=== PATIENT | male | born 1970 | race Two or more races ===

== ENCOUNTER 2025-09-25 11:59 | Emergency (ER) | payer MEDICAID ==
[~2025-09-25] VITALS: Ht 182.9 cm; Wt 107.0 kg
--- NOTE | 2025-09-25 13:31 | ED.PDOC ---
History of Present Illness(SKN HPI Comments This is a 55 year old male presenting to the ED with chief complaint of rash. Patient reports that he has been experiencing rash to his right lower back since , starting to crust over recently. Patient relays that the pain is a burning sensation. Patient denies any numbness, weakness, itchiness, fever, or chills. Chief Complaint: Rash Time Seen by MD: 13:29 History of Present Illness: Nurses Notes, Medications, Allergies Information Source: Patient, Relative (Child) Mode of Arrival: Ambulatory Severity: Mild Timing: Days Duration: Since onset Prehospital treatment: None Location: Back Mechanism: Spontaneous Onset Developed: Rash Object: None Condition of Object: None Retained Foreign Body: No History of: None Past Medical History PAST MEDICAL HISTORY: High Lipids Surgical History: Denies all surgeries Family History Family History: Reviewed,noncontributory to illness Social History Smoker: Non-Smoker Alcohol: Denies ETOH Use Drugs: Denies Drug Use Lives In: Home Constitutional: denies: chills, diaphoresis, fatigue, fever, malaise, sweats, weakness, others EENTM: denies: blurred vision, double vision, ear bleeding, ear discharge, ear drainage, ear pain, ear ringing, eye pain, eye redness, hearing loss, mouth pain, mouth swelling, nasal discharge, nose bleeding, nose congestion, nose pain, photophobia, tearing, throat pain, throat swelling, voice changes, others Respiratory: denies: cough, hemoptysis, orthopnea, SOB at rest, shortness of breath, SOB with excertion, stridor, wheezing, others Cardiovascular: denies: chest pain, dizzy spells, diaphoresis, Dyspnea on exertion, edema, irregular heart beat, left arm pain, lightheadedness, palpitations, PND, syncope, others Gastrointestinal: denies: abdomen distended, abdominal pain, blood streaked bowels, constipated, diarrhea, dysphagia, difficulty swallowing, hematemesis, melena, nausea, poor appetite, poor fluid intake, rectal bleeding, rectal pain, vomiting, others Genitourinary: denies: burning, dysuria, flank pain, frequency, hematuria, incontinence, penile discharge, penile sore, pain, testicle pain, testicle swelling, urgency, others Neurological: denies: dizziness, fainting, headache, left sided numbness, left sided weakness, numbness, paresthesia, pre-existing deficit, right sided numbness, right sided weakness, seizure, speech problems, tingling, tremors, weakness, others Musculoskeletal: denies: back pain, gout, joint pain, joint swelling, muscle pain, muscle stiffness, neck pain, others Integumetry: reports: rash; denies: bruises, change in color, change in hair/nails, dryness, laceration, lesions, lumps, wounds, others Allergic/Immunocompromised: denies: Difficulty Healing, Frequent Infections, Hives, Itching, others Hematologic/Lymphatic: denies: anemia, blood clots, easy bleeding, easy bruising, swollen glands, others Endocrine: denies: excessive hunger, excessive sweating, excessive thirst, excessive urination, flushing, intolerance to cold, intolerance to heat, unexplained weight gain, unexplained weight loss, others Psychiatric: denies: anxiety, bipolar disorder, depression, hopeless, panic disorder, schizophrenia, sleepless, suicidal, others All Other Systems: Reviewed and Negative Physical Exam General Appearance: Moderate Distress, Normal HEENT: Normal ENT Inspection, Pharynx Normal, TMs Normal Neck: Full Range of Motion, Non-Tender, Normal, Normal Inspection Respiratory: Chest Non-Tender, Lungs Clear, No Accessory Muscle Use, No Respiratory Distress, Normal Breath Sounds Cardiovascular: No Edema, No JVD, No Murmur, No Gallop, Normal Peripheral Pulses, Regular Rate/Rhythm Breast Exam: Deferred Gastrointestinal: No Organomegaly, Non Tender, No Pulsatile Mass, Normal Bowel Sounds, Soft Genitalia: Deferred Pelvic: Deferred Rectal: Deferred Extremities: No calf tenderness, Normal capillary refill, Normal inspection, Normal range of motion, Non-tender, No pedal edema Musculoskeletal : Apperance: Normal Neurologic: Alert, graphic design manager II-XII nml as Tested, No Motor Deficits, Normal Affect, Normal Mood, No Sensory Deficits Cerebellar Function: Normal Reflexes: Normal Skin: Dry, Normal Color, Rash (Lower back along the dermatomal presentation), Warm Peripheral Pulses: 3+ Radial (R), 3+ Radial (L) Lymphatic: No Adenopathy Was a procedure done? Was a procedure done?: No Differential Diagnosis (INTG) Differential Diagnosis: Herpes Zoster/Simplex X-Ray, Labs, Meds, VS Vital Signs Date Time Temp Pulse Resp B/P (MAP) Pulse Ox O2 Delivery O2 Flow Rate FiO2 09/25/25 12:03 98.5 64 16 130/79 96 98.5 Patient alert. Complaining of rash in the lower back. Vitals stable. Answering questions. On examination he does have rash along the dermatome representation. Herpes zoster virus infection. Was given prescription of acyclovir. Explained to the patient. Was told to follow up with his primary care physician. Was told to come back if there is any problem. Time of 1ST Reevaluation: 13:30 Reevaluation 1ST: Unchanged Patient Education/Counseling: Diagnosis, Treatment Family Education/Counseling: Diagnosis, Treatment SEPSIS Sepsis Screen Date sepsis recognized/suspect: Sep 25, 2025 Time Sepsis recognized/suspect: 1208 Recent Procedure: No Respiratory Rate >20: No Heart Rate >90: No Temp<36 C (96.8 F) or >38.3 C: No SBP <90 or MAP <65 mmHG: No New Acute Mental Status Change: No Is the patient on CPAP, BIPAP,: No Vital Signs Date Time Temp Pulse Resp B/P (MAP) Pulse Ox O2 Delivery O2 Flow Rate FiO2 09/25/25 12:03 98.5 64 16 130/79 96 98.5 Departure 1 Departure Time of Disposition: 14:17 Impression: Primary Impression: Herpes zoster infection Qualified Codes: B02.9 - Zoster without complications Disposition: 01 HOME / SELF CARE / HOMELESS Condition: Good e-Prescriptions Ibuprofen Micronized (MOTRIN TABLET) 600 Mg Tb 600 MG PO TID PRN for 3 Days, #9 TAB *Black box warning-NSAIDS can increase risk of [place] & hypertension, GI irritation, ulceration, bleed, perferation. Do not use post cardiac surgery. Use short duration/lowest effective dose. Prov: LEANA KING MD 09/25/25 Acyclovir (ZOVIRAX TABLET) 400 Mg Tb 1 TAB PO TID for 7 Days, #21 TAB Prov: LEANA KING MD 09/25/25 Discharged With: Self Critical Care Note Critical Care Time?: No Stability Stability form required: No Heart Score Heart Score: Heart Score Response (Comments) Value History N/A 0 EKG N/A 0 Age N/A 0 Risk Factors N/A 0 Troponin N/A 0 Total 0 I personally scribed for LEANA KING MD ([email or web address]) on 09/25/25 at 13:31. Electronically submitted by Rocco Blair ([email or web address]). LEANA KING MD Sep 25, 2025 13:31
[2025-09-25] MEDS ORDERED: ACYC400T16 PO (14:18)
[2025-09-25] MEDS ORDERED: IBU600T PO (14:18)
[2025-09-25 14:49] VITALS: BP 123/76; PULSE 74; RESP 18; TEMP 99.6; O2SAT 95
== END 2025-09-25 14:53 | disposition home or self-care (01) ==
LOC: ER 11:59
DX: B02.9 Zoster without complications (principal); E78.5 Hyperlipidemia, unspecified